=== PATIENT | female | born 1965 | race Two or more races ===

== ENCOUNTER 2017-01-05 19:08 | Emergency (ER) | payer OTHER ==
[~2017-01-05] VITALS: Ht 165.1 cm; Wt 84.8 kg
[2017-01-05 19:31] VITALS: BP 107/43
[2017-01-05] MEDS ORDERED: KETOROLAC TROMETH 60MG/2ML VIAL IM ONE (22:30)
== END 2017-01-05 22:56 | disposition home or self-care (01) ==
LOC: ER 19:13
CPT/HCPCS: 73030 ×2; 73502 ×2; 96372 ×2; 99284; J1885 ×2